=== PATIENT | female | born 1935 | race Caucasian/White ===

== ENCOUNTER 2017-11-29 13:05 | Emergency (ER) | payer OTHER, MEDICAID ==
[2017-11-29 14:12] VITALS: BP 137/91
== END 2017-11-29 18:45 | disposition home or self-care (01) ==
LOC: ED 13:05
DX: S46.912A Strain of unspecified muscle, fascia and tendon at shoulder and upper arm level, left arm, initial encounter (principal); R07.89 Other chest pain; V89.2XXA Person injured in unspecified motor-vehicle accident, traffic, initial encounter; Y93.89 Activity, other specified; Y92.89 Other specified places as the place of occurrence of the external cause; Y99.8 Other external cause status
CPT/HCPCS: J1885

== ENCOUNTER 2019-08-11 09:49 | Emergency (ER) | payer OTHER, MEDICAID ==
[~2019-08-11] VITALS: Ht 160 cm; Wt 88.9 kg
[2019-08-11 09:55] VITALS: Ht 160 cm; Wt 88.9 kg
[2019-08-11 11:08] LABS: BASOPHIL % 0.3 % (0-2)
[2019-08-11 11:10] LABS: PLATELET COUNT 613 x10^3mcL (130-400); RED CELL DISTRIBUTION WIDTH 14.8 % (11.5-14.5)
[2019-08-11 11:26] LABS: CALCIUM 8.3 mg/dL (8.5-10.1); CHLORIDE SERUM 102 mmol/L (98-107); CREATININE SERUM 0.8 mg/dL (0.6-1.0); GLUCOSE SERUM 186 mg/dL (74-106); POTASSIUM SERUM 4.7 mmol/L (3.5-5.1); SODIUM SERUM 139 mmol/L (136-145)
[2019-08-11 11:32] LABS: ALKALINE PHOSPHATASE 61 U/L (46-116); ALT/SGPT 43 U/L (14-59); AST/SGOT 37 U/L (15-37); BILIRUBIN TOTAL 0.2 mg/dL (0.20-1.00); CHOLESTEROL 178 mg/dL (<200); HDL CHOLESTEROL 56 mg/dL (40-60); MAGNESIUM 1.9 mg/dL (1.8-2.4); TOTAL PROTEIN, SERUM 7.9 g/dL (6.4-8.2)
[2019-08-11 11:33] LABS: ALBUMIN 3.2 g/dL (3.4-5.0)
[2019-08-11 11:40] LABS: microscopic required? YES; urine erythrocyte TRACE (NEGATIVE)
[2019-08-11 11:52] VITALS: BP 150/77
== END 2019-08-11 12:19 | disposition home or self-care (01) ==
LOC: ED 09:49
PROVIDERS: Emergency Medicine
DX: R42 Dizziness and giddiness (principal); I10 Essential (primary) hypertension; E11.9 Type 2 diabetes mellitus without complications; B69.9 Cysticercosis, unspecified; E66.9 Obesity, unspecified; Z68.34 Body mass index [BMI] 34.0-34.9, adult; Z90.710 Acquired absence of both cervix and uterus
CPT/HCPCS: 36415; 82962; J8597